=== PATIENT | female | born 2000 | race Two or more races ===

== ENCOUNTER 2020-01-09 01:34 | Emergency (ER) | payer OTHER ==
[~2020-01-09] VITALS: Ht 162.6 cm; Wt 50.8 kg
== END 2020-01-09 03:33 | disposition home or self-care (01) ==
LOC: ER 01:34
DX: L50.8 Other urticaria (principal); T78.1XXA Other adverse food reactions, not elsewhere classified, initial encounter; X58.XXXA Exposure to other specified factors, initial encounter

== ENCOUNTER → 2021-02-26 | Outpatient (CLI) | payer OTHER | END | disposition home or self-care (01) | LOC: PPH VACUNA 15:44 | DX: Z23 Encounter for immunization (principal) ==

== ENCOUNTER 2021-03-19 08:26 | Outpatient (CLI) | payer OTHER | END 2021-03-19 08:27 | disposition home or self-care (01) | LOC: PPH VACUNA 08:26 | DX: Z23 Encounter for immunization (principal) ==

== ENCOUNTER → 2021-11-14 | Outpatient (CLI) | payer OTHER | END | disposition home or self-care (01) | LOC: PPH VACUNA | DX: Z23 Encounter for immunization (principal) ==